=== PATIENT | male | born 1930 | race Two or more races ===

== ENCOUNTER 2018-07-27 22:45 | Emergency (ER) | payer MEDICARE, MEDICAID ==
[~2018-07-27] VITALS: Ht 170.2 cm; Wt 72.6 kg
[2018-07-27 23:13] VITALS: BP 151/89
--- NOTE | 2018-07-27 23:13 | NUR ---
ER Nurse Note: Pt BIBA from home d/t AMS. Per family member at bedside, pt was recently DC [facility] for hyponatremia and generalized weakness. Pt a&ox3, VSS, no signs of distress. EMS established IV line on route. Will continue to [facility].
[2018-07-27 23:41] LABS: BASOPHILS % (AUTO) 0.7 % (0.0-2.0); EOSINOPHILS % (AUTO) 0.3 % (0.0-3.0); HEMATOCRIT 35.1 % (42.0-52.0); HEMOGLOBIN 11.9 G/DL (14.2-18.0); LYMPHOCYTES % (AUTO) 18.7 % (20.0-45.0); MEAN CORPUSCULAR VOLUME 85 FL (80-99); MONOCYTES % (AUTO) 9.6 % (1.0-10.0); NEUTROPHILS % (AUTO) 70.8 % (45.0-75.0); PLATELET COUNT 221 K/UL (150-450); RED BLOOD COUNT 4.12 M/UL (4.70-6.10); RED CELL DISTRIBUTION WIDTH 13.6 % (11.6-14.8)
[2018-07-27 23:55] LABS: ANION GAP 7 mmol/L (5-15); BLOOD UREA NITROGEN 17 mg/dL (7-18); CALCIUM 8.8 MG/DL (8.5-10.1); CARBON DIOXIDE 24 MMOL/L (21-32); CHLORIDE 97 MMOL/L (98-107); CREATININE 1.1 MG/DL (0.55-1.30); POTASSIUM 4.3 MMOL/L (3.5-5.1); SODIUM 128 MMOL/L (136-145)
[2018-07-28 00:04] LABS: APPEARANCE,URINE CLEAR; BILIRUBIN, URINE NEGATIVE (NEGATIVE); GLUCOSE, URINE (UA) NEGATIVE (NEGATIVE); KETONES,URINE NEGATIVE (NEGATIVE); LEUKOCYTE ESTERASE ,URINE 1+ (NEGATIVE); NITRITE,URINE NEGATIVE (NEGATIVE); PH,URINE 6 (4.5-8.0); PROTEIN,URINE 2+ (NEGATIVE); UROBILINOGEN,URINE 4 MG/DL (0.0-1.0)
--- NOTE | 2018-07-28 00:10 | Emergency Room Report ---
History of Present Illness General Chief Complaint: Altered Mental Status Source: Patient, Family Member, EMS Present Illness HPI This an 87-year-old male with multiple medical problems including CAD, CABG, hypertension to name a few. He presents with chief complaint of weakness. He was admitted to [facility] for a week for hyponatremia. Initially sodium was 120 and a drop to 116. He had multiple work-up including CAT scan of his abdomen and was normal. He was discharged a week ago. He was doing well until today. His said he is very weak. Unable to get up. She was concerned so she called 911. He was transferred here instead of seizures because they were on diversion. Patient denies any pain. No fever chills but no urinary complaint. Allergies: Coded Allergies: No Known Allergies (Unverified , 07/27/18) Patient History Past Medical History: see triage record, old chart reviewed, HTN, CAD, AFib Past Surgical History: CABG, other Pertinent Family History: none Social History: Denies: smoking Immunizations: other Reviewed Nursing Documentation: PMH: Agreed; PSxH: Agreed Nursing Documentation-PMH Hx Cardiac Problems: Yes - CABG; HYPONATREMIA Hx Hypertension: Yes Hx Pacemaker: Yes Review of Systems Constitutional: Reports: weakness Eye: Denies: eye pain, blurred vision ENT: Denies: ear pain, nose congestion, throat swelling Respiratory: Denies: cough, shortness of breath Cardiovascular: Denies: chest pain, palpitations Gastrointestinal: Denies: abdominal pain, diarrhea, nausea, vomiting Musculoskeletal: Denies: back pain, joint pain Skin: Denies: rash Neurological: Denies: headache, numbness Endocrine: Denies: increased thirst, increased urine Hematologic/Lymphatic: Denies: easy bruising All Other Systems: negative except mentioned in HPI Physical Exam Vital Signs Date Time Temp Pulse Resp B/P (MAP) Pulse Ox O2 Delivery O2 Flow Rate FiO2 07/27/18 22:48 99.0 72 20 151/89 (109) 95 Room Air Vitals with high blood pressure Sp02 EP Interpretation: reviewed, normal General Appearance: no apparent distress, alert, Chronically Ill Head: normocephalic, atraumatic Eyes: bilateral eye PERRL, bilateral eye EOMI ENT: hearing grossly normal, normal pharynx Neck: full range of motion, supple, no meningismus Respiratory: chest non-tender, lungs clear, normal breath sounds Cardiovascular #1: regular rate, rhythm, no murmur Gastrointestinal: normal bowel sounds, non tender, no mass, no organomegaly, no bruit, non-distended Musculoskeletal: back normal, normal range of motion Neurologic: grossly normal Psychiatric: mood/affect normal Skin: warm/dry Medical Decision Making Diagnostic Impression: Primary Impression: Weakness generalized Additional Impression: Hyponatremia ER Course Pt presents with generalized weakness and has hyponatremia. Is not severe to the point requiring hypertonic solution. No evidence of infection. EKG showed a paced rhythm. As of his age and weakness, I offered admission for further work-up. He was feeling better after IV fluid and family wanted to take him home. He has an appointment with Dr. Guardado tomorrow. I will let him know. EKG Diagnostic Results Rate: normal Rhythm: NSR ST Segments: other - paced Rhythm Strip Diag. Results EP Interpretation: yes Rate: 75 Rhythm: NSR, no PVC's, no ectopy Last Vital Signs Date Time Temp Pulse Resp B/P (MAP) Pulse Ox O2 Delivery O2 Flow Rate FiO2 07/27/18 23:13 72 20 Room Air 07/27/18 23:13 99.0 151/89 95 Status: improved Disposition: ADMITTED INPATIENT Condition: Serious Additional Instructions: Follow-up with your doctor tomorrow for your appointment. Return if symptoms worsen. Hiren Raya MD Jul 28, 2018 00:10
[2018-07-28 00:15] LABS: COLOR,URINE YELLOW
[2018-07-28 00:50] VITALS: BP 138/79
--- NOTE | 2018-07-28 00:50 | NUR ---
ER Nurse Note: All orders completed per ERMD orders. Pt seen, treated, medically cleared for discharge by ERMD. Discharge instructions and prescriptions given with repeat verbazliaion by pt. Instructed pt to follow up with primary care provider. Pt a&ox4, VSS, no signs of distress. Provided lab results. ID band removed. IV removed, site clean and bandaged. Pt left with all belongings with wheelchair via own transportation with family.
--- NOTE | 2018-07-28 15:00 | Cardiology Report ---
APPROVED REPORT EKG Measurement Heart [id number] OH 184P [id number] afib intermittent v pacing , lateral t inversion cannot exclude iscehmia clinical correlation recommended
== END 2018-07-28 00:50 | disposition home or self-care (01) ==
LOC: EDBD 22:45 → EMR 23:22 → CANBEDREQ 07-28 00:29 → EMR 07-28 00:50
DX: R53.1 Weakness (principal); E87.1 Hypo-osmolality and hyponatremia; I11.9 Hypertensive heart disease without heart failure; Z95.1 Presence of aortocoronary bypass graft; I10 Essential (primary) hypertension; Z95.0 Presence of cardiac pacemaker
CPT/HCPCS: 36415; 80048; 81001; 84484; 85025; 93005; 96360; 99284